=== PATIENT | female | born 1990 | race Caucasian/White ===

== ENCOUNTER 2017-09-25 06:17 | Inpatient (IN) ==
[2017-09-25] MEDS ORDERED: FAMOTIDINE 20 MG/2 ML VIAL IV ONE (06:43)
[2017-09-25] MEDS ORDERED: ceFAZolin 2,000 MG in PREMIX 1 EACH IV ONE (06:43)
[2017-09-25] MEDS ORDERED: CITRIC ACID/SODIUM CITRATE 30 ML UDCUP PO ONE (06:43)
[2017-09-25 06:58] LABS: Basophils % 0.4 % (0.0-0.8); Eosinophils # 0.1 10*3/uL (0.0-0.87); Hematocrit 35.3 VOL% (35.7-47.0); Immature Granulocytes % 0.5 %; Immature Granulocytes Absolute 0.05 #; Lymphocytes # 2.7 10*3/uL (1.4-4.0); Lymphocytes % 27.8 % (21.3-54.2); Mean Corpuscular Hemoglobin 33 PG (27-34); Mean Corpuscular Volume 95.9 FL (87-102); Mean Platelet Volume 11.9 FL (9.6-12.0); Monocytes # 0.6 10*3/uL (0.11-0.8); Monocytes % 5.7 % (1.7-12.7); Neutrophils # 6.4 10*3/uL (1.4-7.4); Neutrophils % 64.6 % (38.7-73.9); Platelet Count 134 T/CUMM (130-400); Red Blood Count 3.68 MC/CUMM (3.8-5.5); Red Cell Distribution Width 13.3 % (9.3-17.3); White Blood Count 9.8 T/CUMM (4-12)
[2017-09-25] MEDS ORDERED: LACTATED RINGERS 1,000 ML IV SCH ×2 (07:00→11:47)
[2017-09-25] MEDS ORDERED: OXYTOCIN 10 UNIT/ML VIAL IM ONE (07:06)
[2017-09-25] MEDS ORDERED: OXYTOCIN/LR 30 UNIT/1,000 ML BAG IV ONE (07:06)
[2017-09-25 07:31] LABS: Alanine Aminotransferase 14 U/L (13-56); Albumin 2.8 G/DL (3.4-5.0); Alkaline Phosphatase 105 U/L (45-117); Aspartate Amino Transferase 12 U/L (0-37); Bilirubin,Total < 0.39 MG/DL (0.2-1.0); Blood Urea Nitrogen 10 MG/DL (7-18); Calcium 8.2 MG/DL (8.5-10.1); Glucose 71 MG/DL (74-106); Osmolality,Calculated 271.7 MOS/KG (273-304); Potassium 3.7 MMOL/L (3.5-5.1); Sodium 138 MMOL/L (136-145); Total Protein 6.3 G/DL (6.4-8.3)
[2017-09-25] MEDS ORDERED: LACTATED RINGERS 1,000 ML IV ONE ×2 (08:00→09:36)
[2017-09-25] MEDS ORDERED: BUPIVACAINE SPINAL 0.75% 2 ML AMP SPINAL ONE (08:05)
[2017-09-25 08:31] LABS: HIV Antigen/Antibody Result Nonreactive (Nonreactive); Hepatitis B Surface Ag Quant < 0.10 Index; Hepatitis B Surface Ag Result Negative (Negative)
[2017-09-25 09:20] LABS: Cord Arterial Blood HCO3 20.3 MMOL/L
[2017-09-25] MEDS ORDERED: PROPOFOL 200 MG/20 ML VIAL IV ONE (09:35)
[2017-09-25] MEDS ORDERED: ONDANSETRON 4 MG/2 ML VIAL ONE (09:36)
[2017-09-25] MEDS ORDERED: MORPHINE 10 MG/10 ML VIAL ONE (09:36)
[2017-09-25] MEDS ORDERED: KETAMINE 500 MG/10 ML VIAL ONE (09:36)
[2017-09-25 09:46] LABS: Cord Venous Blood HCO3 21.9 MMOL/L; Cord Venous Blood PCO2 38.9 MMHG; Cord Venous Blood PO2 30.4
[2017-09-25] MEDS: HYDROmorphone 2 MG/1 ML VIAL IV PRN ×2 (10:16→16:54)
[2017-09-25 10:18] LABS: Apearance,Urine Slightly Hazy (Clear); Bilirubin,Urine Negative (Negative); Blood, Urine Negative (Negative); Glucose,Urine (UA) Negative (Negative); Ketones,Urine Negative (Negative); Mucus,Urine Occasional /LPF (Occasional); Nitrite,Urine Negative (Negative); Protein,Urine Negative; RBC,Urine 3 /HPF (0-4); Squamous Epithelial Cell,Urine Occasional /HPF (0-10); Urine Color Yellow (Yellow); Urine Specific Gravity 1.016 (1.001-1.035); Urine Urobilinogen < 2.0 EU/DL (0.2-1.0); WBC,Urine 2 /HPF (0-6)
[2017-09-25] MEDS ORDERED: ALBUTEROL 1.25 MG/3 ML NEB RESP TX PRN (11:28)
[2017-09-25] MEDS ORDERED: RHO(D) IMMUNE GLOBULIN 300 MCG SYRINGE IM ONE (11:47)
[2017-09-25] MEDS ORDERED: OXYTOCIN/LR 20 UNIT/1,000 ML BAG IV ONE (11:47)
[2017-09-25] MEDS ORDERED: SIMETHICONE CHEW 80 MG TABLET PO PRN (11:47)
[2017-09-25] MEDS ORDERED: ONDANSETRON 4 MG/2 ML VIAL IV PRN (11:47)
[2017-09-25] MEDS ORDERED: ACETAMINOPHEN 325 MG TABLET PO PRN (11:47)
[2017-09-25] MEDS ORDERED: MAGNESIUM HYDROXIDE SUSP 30 ML UDCUP PO PRN (11:47)
[2017-09-25] MEDS ORDERED: PROMETHAZINE 25 MG/1 ML VIAL IM PRN (13:28)
[2017-09-25] MEDS: ceFAZolin 1,000 MG in SYRINGE 1 EACH IV SCH (16:48)
[2017-09-25 17:27] LABS: Basophils % 0.2 % (0.0-0.8); Eosinophils # 0.1 10*3/uL (0.0-0.87); Eosinophils % 0.4 % (0.00-10.9); Hematocrit 31.7 VOL% (35.7-47.0); Immature Granulocytes % 0.5 %; Immature Granulocytes Absolute 0.08 #; Lymphocytes # 2.8 10*3/uL (1.4-4.0); Lymphocytes % 18.9 % (21.3-54.2); Mean Corpuscular HGB Conc 34.7 GM/DL (32-36); Mean Corpuscular Hemoglobin 33 PG (27-34); Mean Corpuscular Volume 94.3 FL (87-102); Mean Platelet Volume 12.4 FL (9.6-12.0); Monocytes # 0.7 10*3/uL (0.11-0.8); Monocytes % 4.4 % (1.7-12.7); NRBC # 0.02 10*3/uL; Neutrophils # 11.2 10*3/uL (1.4-7.4); Neutrophils % 75.6 % (38.7-73.9); Platelet Count 121 T/CUMM (130-400); Red Blood Count 3.36 MC/CUMM (3.8-5.5); Red Cell Distribution Width 13.2 % (9.3-17.3); White Blood Count 14.8 T/CUMM (4-12)
[2017-09-25] MEDS: DOCUSATE SODIUM 100 MG CAPSULE PO SCH (21:59)
[2017-09-26] MEDS: ceFAZolin 1,000 MG in SYRINGE 1 EACH IV SCH (01:26)
[2017-09-26 06:17] LABS: Basophils % 0.4 % (0.0-0.8); Eosinophils # 0.2 10*3/uL (0.0-0.87); Eosinophils % 1.5 % (0.00-10.9); Hematocrit 31.8 VOL% (35.7-47.0); Hemoglobin 10.7 GM/DL (12.0-16.0); Immature Granulocytes % 0.5 %; Immature Granulocytes Absolute 0.05 #; Lymphocytes # 2.3 10*3/uL (1.4-4.0); Mean Corpuscular HGB Conc 33.6 GM/DL (32-36); Mean Corpuscular Hemoglobin 32 PG (27-34); Mean Corpuscular Volume 95.8 FL (87-102); Mean Platelet Volume 11.8 FL (9.6-12.0); Monocytes # 0.6 10*3/uL (0.11-0.8); Monocytes % 5.6 % (1.7-12.7); Neutrophils # 7.8 10*3/uL (1.4-7.4); Platelet Count 112 T/CUMM (130-400); Red Blood Count 3.32 MC/CUMM (3.8-5.5); Red Cell Distribution Width 13.3 % (9.3-17.3)
[2017-09-26] MEDS: IBUPROFEN 800 MG TABLET PO PRN ×2 (07:06→18:27)
[2017-09-26] MEDS ORDERED: MULTIVITAMIN (PRENATAL) TABLET PO SCH (09:00)
[2017-09-26] MEDS: DOCUSATE SODIUM 100 MG CAPSULE PO SCH ×2 (09:45→21:09)
[2017-09-26] MEDS: oxyCODONE/ACETAMINOPHEN 5-325 MG TABLET PO PRN ×3 (11:35→22:28)
[2017-09-27] MEDS: IBUPROFEN 800 MG TABLET PO PRN (04:49)
[2017-09-27] MEDS: oxyCODONE/ACETAMINOPHEN 5-325 MG TABLET PO PRN ×2 (04:51→11:07)
[2017-09-27 07:38] VITALS: BP 123/77
== END 2017-09-27 12:00 | disposition home or self-care (01) | DRG 540 ==
LOC: N.LDOUT 06:17 → N.LD 06:19 → N.OB 11:46
PROVIDERS: ADMIT Obstetrics & Gynecology; ATTEND Obstetrics & Gynecology
PROC: LDCSECT (ICD-10-PCS; 2017-09-25 09:30)